=== PATIENT | male | born 1970 | race Caucasian/White ===

== ENCOUNTER 2019-07-20 08:55 | Emergency (ER) | payer OTHER, MEDICAID ==
[~2019-07-20] VITALS: Ht 177.8 cm; Wt 90.7 kg
[2019-07-20 08:58] VITALS: BP 119/88
--- NOTE | 2019-07-20 09:00 | NUR ---
48 M BIBA for seizure, missed dose of keppra medication. pt. a/o x 3, to name place time. no n/v/d. reports 0/10 pain. superficial abrasion to L fib/tib noted. rx keppra pmhx- seizures, TBI R side deficit
--- NOTE | 2019-07-20 09:04 | NUR ---
seizure precautions in place.
[2019-07-20] MEDS ORDERED: ESCI20TA PO (09:15)
[2019-07-20] MEDS ORDERED: BACL10TA4 PO (09:15)
[2019-07-20] MEDS ORDERED: LEVE1000 PO (09:15)
[2019-07-20] MEDS ORDERED: AMLO5TAB PO (09:15)
[2019-07-20] MEDS ORDERED: [UNRECOGNIZED DRUG - CODE] PO (09:15)
--- NOTE | 2019-07-20 09:23 | NUR ---
girlfriend at bedside with patient
--- NOTE | 2019-07-20 09:52 | NUR ---
pt. sleeping in bed. arousable to name. bed at lowest and locked, rails up x 2. seizure precautions in place. no further needs at this time. will continue to monitor pt.
--- NOTE | 2019-07-20 10:07 | NUR ---
ammon last [phone] pt's father
[2019-07-20] MEDS ORDERED: NACL 0.9% 1,000 ML IV ONE (10:25)
[2019-07-20] MEDS ORDERED: levETIRAcetam 1,000 MG in NACL 0.9% 100 ML IV ONE (10:25)
[2019-07-20] MEDS ORDERED: levETIRAcetam 100 MG/ML VIAL IV ONE (10:26)
[2019-07-20 10:34] LABS: BASOPHILS # (AUTO) 0.1 K/uL (0.00-0.22); BASOPHILS % (AUTO) 0.8 % (0.0-2.0); EOSINOPHILS # (AUTO) 0.2 K/uL (0-0.4); HEMATOCRIT 45.6 % (36-52); HEMOGLOBIN 15.1 g/dL (12.0-18.0); LYMPHOCYTES # (AUTO) 3.8 K/uL (2.0-11.5); LYMPHOCYTES % (AUTO) 42.6 % (20.5-51.1); MEAN CORPUSCULAR HEMOGLOBIN 29 pg (27-31); MEAN CORPUSCULAR HGB CONC 33 g/dL (33-37); MEAN CORPUSCULAR VOLUME 88.7 fL (80-94); MONOCYTES # (AUTO) 0.6 K/uL (0.8-1.0); MONOCYTES % (AUTO) 6.3 % (1.7-9.3); NEUTROPHILS # (AUTO) 4.3 K/uL (1.8-7.7); NEUTROPHILS % (AUTO) 48.3 % (42.2-75.2); PLATELET COUNT (AUTO) 180 K/uL (140-450); RED BLOOD CELL COUNT(AUTO) 5.14 MIL/uL (4.20-6.10); RED CELL DISTRIBUTION WIDTH 17.7 % (11.6-13.7); WHITE BLOOD COUNT (AUTO) 8.8 K/uL (4.8-10.8)
[2019-07-20 10:42] LABS: ANION GAP 18.4 (8-16); CARBON DIOXIDE 23.7 mmol/L (21-32); POTASSIUM 3.1 mmol/L (3.5-5.1)
--- NOTE | 2019-07-20 10:45 | NUR ---
pt. in bed sleeping comfortably, no further needs at this time. bed at lowest and locked, rails up x 2. will continue to monitor.
--- NOTE | 2019-07-20 11:46 | NUR ---
no seizure activity witnessed thus far--remains in seizure precautions continues to denie headache or pain
[2019-07-20 12:00] VITALS: BP 124/82
--- NOTE | 2019-07-20 12:00 | NUR ---
Patient discharged with v/s stable. Written and verbal after care instructions given and explained. Patient verbalized understanding. Ambulatory with steady gait. All questions addressed prior to discharge. Advised to follow up with PMD.
== END 2019-07-20 12:00 | disposition home or self-care (01) ==
LOC: MED 08:55
DX: S80.812A Abrasion, left lower leg, initial encounter (principal); R56.9 Unspecified convulsions; R94.31 Abnormal electrocardiogram [ECG] [EKG]; Z79.899 Other long term (current) drug therapy; X58.XXXA Exposure to other specified factors, initial encounter; Y93.E1 Activity, personal bathing and showering; Y92.091 Bathroom in other non-institutional residence as the place of occurrence of the external cause; Y99.8 Other external cause status
CPT/HCPCS: 36415; 80048; 85025; 93005; 96365; 99284; J1953; J7030